=== PATIENT | male | born 1990 | race Caucasian/White ===

== ENCOUNTER 2021-03-10 01:56 | Emergency (ER) | payer SELFPAY ==
[~2021-03-10] VITALS: Ht 177.8 cm; Wt 104.3 kg
== END 2021-03-10 02:40 | disposition home or self-care (01) ==
LOC: ER 01:56
DX: K08.89 Other specified disorders of teeth and supporting structures (principal); F17.200 Nicotine dependence, unspecified, uncomplicated
CPT/HCPCS: 96372; 99282-25; J1885